=== PATIENT | male | born 1965 | race Caucasian/White ===

== ENCOUNTER 2023-07-31 16:26 | Emergency (ER) | payer OTHER ==
[~2023-07-31] VITALS: Ht 157.5 cm; Wt 65.0 kg
[2023-07-31 16:36] VITALS: BP 116/89; PULSE 79; RESP 19; TEMP 98.8; O2SAT 99
[2023-07-31] MEDS ORDERED: DICL100G32 TP (18:11)
[2023-07-31] MEDS ORDERED: IBUP-2213 PO (18:11)
[2023-07-31] MEDS ORDERED: CYCL-711 PO (18:11)
[2023-07-31 19:05] VITALS: BP 121/80; PULSE 70; RESP 19; TEMP 98; O2SAT 99
== END 2023-07-31 19:05 | disposition home or self-care (01) ==
LOC: MED 16:26
DX: R07.89 Other chest pain (principal); E11.9 Type 2 diabetes mellitus without complications; Z79.899 Other long term (current) drug therapy; Z79.1 Long term (current) use of non-steroidal anti-inflammatories (NSAID); V89.2XXA Person injured in unspecified motor-vehicle accident, traffic, initial encounter; Y93.89 Activity, other specified; Y92.410 Unspecified street and highway as the place of occurrence of the external cause; Y99.8 Other external cause status
CPT/HCPCS: 71046; 99283